=== PATIENT | female | born 1935 | race Caucasian/White ===

== ENCOUNTER 2017-07-28 23:04 | Emergency (ER) | payer MEDICARE, BC ==
[2017-07-28] MEDS ORDERED: Sodium Chloride 0.9% 10 ML Syringe FLUSH PRN (23:15)
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
[2017-07-29] MEDS ORDERED: Sodium Chloride 0.9% 10 ML Syringe FLUSH PRN (00:08)
[2017-07-29] MEDS ORDERED: Sodium Chloride 0.9% 1,000 ML IV SCH (00:15)
[2017-07-29 00:23] LABS: CHLORIDE,CL 96 mmol/L (98-107); SODIUM,NA 132 mmol/L (136-145)
[2017-07-29 02:26] VITALS: BP 128/62
== END 2017-07-29 02:10 | disposition home or self-care (01) ==
LOC: LL.ED 23:04
DX: K52.9 Noninfective gastroenteritis and colitis, unspecified (principal); I25.10 Atherosclerotic heart disease of native coronary artery without angina pectoris; I10 Essential (primary) hypertension; M19.90 Unspecified osteoarthritis, unspecified site; E78.00 Pure hypercholesterolemia, unspecified; F02.80 Dementia in other diseases classified elsewhere, unspecified severity, without behavioral disturbance, psychotic disturbance, mood disturbance, and anxiety; G30.9 Alzheimer's disease, unspecified; J44.9 Chronic obstructive pulmonary disease, unspecified; M81.0 Age-related osteoporosis without current pathological fracture; F32.9 Major depressive disorder, single episode, unspecified; Z88.2 Allergy status to sulfonamides; Z88.0 Allergy status to penicillin; Z88.1 Allergy status to other antibiotic agents; Z88.6 Allergy status to analgesic agent; Z79.899 Other long term (current) drug therapy; Z87.440 Personal history of urinary (tract) infections; E87.1 Hypo-osmolality and hyponatremia; E83.42 Hypomagnesemia; Z86.79 Personal history of other diseases of the circulatory system; Z90.79 Acquired absence of other genital organ(s); Z90.710 Acquired absence of both cervix and uterus
CPT/HCPCS: 36415; 80053; 85025; 96360; 96361; 99284; J7030; J7050

== ENCOUNTER 2017-08-09 09:35 | Day surgery (SDC) | payer MEDICARE, BC ==
[~2017-08-09 09:35] MED LIST: Lactated Ringers 1,000 ML IV SCH; Sodium Chloride 0.9% 10 ML Syringe FLUSH PRN
[2017-08-09] MEDS ORDERED: Propofol 200 MG/20 ML SDV ONE ×2 (10:50→10:57)
[2017-08-09] MEDS ORDERED: Midazolam 1 MG/ML 2 ML SDV ONE ×2 (10:50→10:57)
--- NOTE | 2017-08-09 10:55 | PCM.PN ---
- General Info Date of Service: 08/09/17 - Review of Systems Systems Review Comment:: 82-year-old female referred for colonoscopy. It is been many years since her last colon exam. She does have a history of colitis. I have discussed the proposed colonoscopy with the patient. Risks such as but not limited to GI injury and bleeding or discussed. She appears to understand and agrees to proceed. Her recent history and physical is reviewed. And there is no significant change in her health status since that time. - Patient Data Vitals - Most Recent: Last Vital Signs Temp 98.2 F 08/09/17 10:31 Pulse 114 H 08/09/17 10:31 Resp 18 08/09/17 10:31 BP 143/65 H 08/09/17 10:31 Pulse Ox 99 08/09/17 10:31 Weight - Most Recent: 65.317 kg Med Orders - Current: Current Medications Lactated Ringer's (Ringers, Lactated) 1,000 mls @ 125 mls/hr IV ASDIRECTED TEN Last Admin: 08/09/17 10:49 Dose: 125 mls/hr Sodium Chloride (Saline Flush) 10 ml FLUSH ASDIRECTED PRN PRN Reason: Keep Vein Open Discontinued Medications Midazolam HCl (Versed 1 Mg/Ml) Confirm Administered Dose 2 mg .ROUTE .STK-MED ONE Stop: 08/09/17 10:51 Propofol (Diprivan 20 Ml) Confirm Administered Dose 400 mg .ROUTE .STK-MED ONE Stop: 08/09/17 10:51 - Problem List Review Problem List Initiated/Reviewed/Updated: Yes - Assessment Assessment:: Colon Cancer Screening History of Colitis - Plan Plan:: Colonoscopy
[2017-08-09] MEDS ORDERED: ePHEDrine 50 MG/ML SDV ONE (10:57)
--- NOTE | 2017-08-09 11:46 | PCM.OPNOTE ---
- General Post-Op/Procedure Note Date of Surgery/Procedure: 08/09/17 Operative Procedure(s): Colonoscopy Findings: Normal appearing colon mucosa but with lack of distensibility suggestive of chronic colitis Pre Op Diagnosis: Colon Cancer Screening. History of Colitis Post-Op Diagnosis: Normal colon Anesthesia Technique: MAC Primary Surgeon: Pato Sandy Pathology: none Output, Urine Amount: 0 EBL in mLs: 0 Complications: None Condition: Good Free Text/Narrative:: Intake & Output 08/08/17 08/09/17 08/09/17 22:59 06:59 14:59 Intake Total 700 Balance 700
--- NOTE | 2017-08-09 14:10 | OR ---
Date of Procedure: 08/09/2017 PREOPERATIVE DIAGNOSES: 1. Colon cancer screening. 2. History of colitis. POSTOPERATIVE DIAGNOSIS: Normal colon. OPERATION PERFORMED: Colonoscopy. INDICATIONS FOR SURGERY: This 82-year-old female with a history of colitis in the past. She is referred for colonoscopy. She has recently had some abdominal pain and it has been many years since her last colonoscopy. FINDINGS: No mucosal lesions were seen during colonoscopy. No polyps or visible signs of acute inflammation are seen. The patient's colon diffusely shows a relative lack of distensibility suggesting perhaps chronic colitis, but no acute colitis changes were seen today. No indication of extrinsic or intrinsic masses noted. PROCEDURE IN DETAIL: The patient was taken to the operating room. She was given intravenous sedation and with her in the left lateral decubitus position, digital rectal exam was performed showing no rectal masses. The Olympus colonoscope was inserted into the rectum. Retroflexed examination of the rectal canal was performed. The scope was then carefully advanced under direct visualization through the entire length of the colon until cecum is reached. Cecal acquisition is confirmed by noting the normal internal cecal anatomy including the ileocecal valve. The light was also noted to transilluminate the abdominal wall in the right lower quadrant. After examining the cecum, the scope was slowly withdrawn sequentially re-examining the colonic segments until the entire colon and rectum had been fully examined. The scope was removed and the patient was taken from the operating room in satisfactory condition. ESTIMATED BLOOD LOSS: Zero. COMPLICATIONS: None. PROGNOSIS: Good. SADIE Sandy MD /[id number]
[2017-08-09 14:13] VITALS: BP 115/51
== END 2017-08-09 12:50 | disposition home or self-care (01) ==
LOC: LL.SDS 09:35
PROVIDERS: ATTEND Surgery
DX: Z12.11 Encounter for screening for malignant neoplasm of colon (principal); I10 Essential (primary) hypertension; E78.5 Hyperlipidemia, unspecified; F41.9 Anxiety disorder, unspecified; F32.9 Major depressive disorder, single episode, unspecified; Z88.1 Allergy status to other antibiotic agents; Z88.0 Allergy status to penicillin; Z88.2 Allergy status to sulfonamides; Z88.8 Allergy status to other drugs, medicaments and biological substances; Z79.899 Other long term (current) drug therapy
CPT/HCPCS: 00810; G0121; J2250; J2704; J7120

== ENCOUNTER 2017-10-30 13:26 | Emergency (ER) | payer MEDICARE, BC ==
[2017-10-30 14:40] LABS: CHLORIDE,CL 97 mmol/L (98-107); SODIUM,NA 132 mmol/L (136-145)
[2017-10-30 15:08] VITALS: BP 148/63
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
== END 2017-10-30 15:38 | disposition home or self-care (01) ==
LOC: LL.ED 13:26
DX: I11.9 Hypertensive heart disease without heart failure (principal); J44.9 Chronic obstructive pulmonary disease, unspecified; M19.90 Unspecified osteoarthritis, unspecified site; K21.9 Gastro-esophageal reflux disease without esophagitis; F41.8 Other specified anxiety disorders; E83.42 Hypomagnesemia; E87.1 Hypo-osmolality and hyponatremia; I25.10 Atherosclerotic heart disease of native coronary artery without angina pectoris; Z79.899 Other long term (current) drug therapy; Z88.0 Allergy status to penicillin; Z88.1 Allergy status to other antibiotic agents; Z88.2 Allergy status to sulfonamides; Z88.8 Allergy status to other drugs, medicaments and biological substances
CPT/HCPCS: 36415; 80053; 81001; 83735; 83880; 84484; 85025; 87086; 99284

== ENCOUNTER 2017-11-26 10:17 | Observation (INO) | payer MEDICARE, BC ==
[2017-11-26] MEDS ORDERED: Meclizine 25 MG Tab PO ONE (10:53)
[2017-11-26] MEDS ORDERED: Sodium Chloride 0.9% 500 ML IV ONE (10:54)
[2017-11-26 11:00] LABS: CHLORIDE,CL 99 mmol/L (98-107); SODIUM,NA 136 mmol/L (136-145)
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
[2017-11-26] MEDS ORDERED: Meclizine 25 MG Tab PO PRN ×2 (13:00→18:00)
[2017-11-26] MEDS ORDERED: methylPREDNISolone Acetate 40 MG/ML SDV IM ONE (13:30)
[2017-11-26] MEDS ORDERED: methylPREDNISolone Sodium Succinate 125 MG/2 ML SDV IVPUSH ONE (13:45)
[2017-11-26] MEDS: Metoprolol Tartrate 25 MG Tab PO SCH (17:13)
[2017-11-26] MEDS: Magnesium Oxide 400 MG Tab PO SCH (17:14)
[2017-11-26] MEDS: Amitriptyline 10 MG Tab PO SCH (20:06)
[2017-11-26] MEDS: Acetaminophen 325 MG Tab PO PRN (20:06)
[2017-11-26] MEDS: Sodium Chloride 0.9% 10 ML Syringe FLUSH PRN (20:08)
[2017-11-27] MEDS: Acetaminophen 325 MG Tab PO PRN (02:54)
[2017-11-27] MEDS: Escitalopram 20 MG Tab PO SCH (07:45)
[2017-11-27] MEDS: Ferrous Sulfate 325 MG Tab PO SCH (07:45)
[2017-11-27] MEDS: Metoprolol Tartrate 25 MG Tab PO SCH ×2 (07:46→17:13)
[2017-11-27] MEDS: Lisinopril 10 MG Tab PO SCH (07:47)
[2017-11-27] MEDS: Multivitamin Tab PO SCH (07:47)
[2017-11-27] MEDS: Magnesium Oxide 400 MG Tab PO SCH ×3 (07:47→17:13)
--- NOTE | 2017-11-27 14:59 | PCM.PN ---
- General Info Date of Service: 11/27/17 Functional Status: Reports: Other (head still feels heavy) - Review of Systems General: Reports: Weakness HEENT: Reports: No Symptoms Pulmonary: Reports: No Symptoms Cardiovascular: Reports: No Symptoms Gastrointestinal: Reports: No Symptoms Genitourinary: Reports: No Symptoms Musculoskeletal: Reports: No Symptoms Skin: Reports: No Symptoms Neurological: Reports: Dizziness, Weakness Psychiatric: Reports: No Symptoms - Patient Data Vitals - Most Recent: Last Vital Signs Temp 97.8 F 11/27/17 08:00 Pulse 98 11/27/17 08:00 Resp 18 11/27/17 08:00 BP 150/86 H 11/27/17 08:00 Pulse Ox 98 11/27/17 08:00 Weight - Most Recent: 142 lb I&O - Last 24 Hours: Intake & Output 11/26/17 11/27/17 11/27/17 22:59 06:59 14:59 Intake Total 320 780 Output Total 500 Balance 320 280 Lab Results Last 24 Hours: Laboratory Results - last 24 hr 11/26/17 Range/Units 16:40 Specimen Type Urincc Urine Color Light yellow Urine Appearance Clear Urine pH 7.0 (5.0-9.0) Ur Specific [place] 1.015 (1.005-1.030) Urine Protein Negative (NEGATIVE) mg/dL Urine Glucose (UA) Negative (NEGATIVE) mg/dL Urine Ketones Negative (NEGATIVE) mg/dL Urine Occult Blood Negative (NEGATIVE) Urine Nitrite Negative (NEGATIVE) Urine Bilirubin Negative (NEGATIVE) Urine Urobilinogen 0.2 (0.2-1.0) E.U./dL Ur Leukocyte Esterase Negative (NEGATIVE) Urine RBC Not seen /HPF Urine WBC Not seen /HPF Ur Epithelial Cells Rare /LPF Urine Bacteria Not seen (NONE TO FEW) /HPF Med Orders - Current: Current Medications Acetaminophen (Tylenol) 650 mg PO Q4H PRN PRN Reason: Pain Last Admin: 11/27/17 02:54 Dose: 650 mg Amitriptyline HCl (Elavil) 10 mg PO BEDTIME TEN Last Admin: 11/26/17 20:06 Dose: 10 mg Escitalopram Oxalate (Lexapro) 10 mg PO DAILY TEN Last Admin: 11/27/17 07:45 Dose: 10 mg Ferrous Sulfate (Ferrous Sulfate) 325 mg PO DAILY TEN Last Admin: 11/27/17 07:45 Dose: 325 mg Influenza Virus Vaccine (Fluzone High-Dose ) 180 mcg IM .ONCE ONE Stop: 11/27/17 15:01 Last Admin: 11/27/17 14:45 Dose: 180 mcg Lisinopril (Prinivil) 10 mg PO DAILY [facility] Last Admin: 11/27/17 07:47 Dose: 10 mg Magnesium Oxide (Magnesium Oxide) 400 mg PO TID [facility] Last Admin: 11/27/17 11:42 Dose: 400 mg Meclizine HCl (Antivert) 25 mg PO Q6H PRN PRN Reason: Dizziness Metoprolol Tartrate (Lopressor) 12.5 mg PO BID [facility] Last Admin: 11/27/17 07:46 Dose: 12.5 mg Multivitamins/Minerals/Vitamin C (Tab-A-Taylor) 1 tab PO DAILY [facility] Last Admin: 11/27/17 07:47 Dose: 1 tab Sodium Chloride (Saline Flush) 10 ml FLUSH ASDIRECTED PRN PRN Reason: Keep Vein Open Last Admin: 11/26/17 20:08 Dose: 10 ml Discontinued Medications Sodium Chloride (Normal Saline) 500 mls @ 250 mls/hr IV ONETIME ONE Stop: 11/26/17 12:53 Last Admin: 11/26/17 11:26 Dose: 250 mls/hr Influenza Virus Vaccine (Pharmacy To Dose - Influenza Vaccine) 1 each IM ONETIME ONE Stop: 11/27/17 08:01 Meclizine HCl (Antivert) 25 mg PO ONETIME ONE Stop: 11/26/17 10:54 Last Admin: 11/26/17 11:26 Dose: 25 mg Meclizine HCl (Antivert) 25 mg PO Q4H PRN PRN Reason: Dizziness Methylprednisolone Acetate (Depo-Medrol) 40 mg IM ONETIME ONE Stop: 11/26/17 13:31 Last Admin: 11/26/17 13:38 Dose: Not Given Methylprednisolone Sodium Succinate (Solu-Medrol) 80 mg IVPUSH ONETIME ONE Stop: 11/26/17 13:46 Last Admin: 11/26/17 13:44 Dose: 80 mg - Exam General: Alert, Cooperative, No Acute Distress HEENT: Pupils Equal, Pupils Reactive, EOMI, Mucous Membr. Moist/[place] Neck: Trachea Midline, No JVD Lungs: Clear to Auscultation, Normal Respiratory Effort Cardiovascular: Regular Rate, Regular Rhythm GI/Abdominal Exam: Normal Bowel Sounds, Non-Tender, No Distention (Female) Exam: Deferred Back Exam: Normal Inspection Extremities: Normal Inspection, Non-Tender, No Pedal Edema Skin: Warm, Dry, Intact Neurological: Other (nystagmus) Psy/Mental Status: Alert, Normal Affect, Normal Mood - Problem List & Annotations (1) Meniere's disease of both ears SNOMED Code(s): 95621836 Code(s): H81.03 - MENIERE'S DISEASE, BILATERAL Status: Acute Priority: High Current Visit: Yes (2) Vertigo SNOMED Code(s): 146690950 Code(s): R42 - DIZZINESS AND GIDDINESS Status: Acute Priority: High Current Visit: Yes Annotation/Comment:: Vertigo sensation currently gone. Head rotation does not trigger worsening symptoms. Continues to complain of dizziness but denies "world is spinning sensation" at this time. (3) Dizziness SNOMED Code(s): 619695858 Code(s): R42 - DIZZINESS AND GIDDINESS Status: Chronic Priority: Medium Current Visit: Yes Annotation/Comment:: Hx of chronic dizziness. (4) Hypomagnesemia SNOMED Code(s): 504510398 Code(s): E83.42 - HYPOMAGNESEMIA Status: Chronic Priority: Medium Current Visit: Yes Onset Date: 11/13/14 Annotation/Comment:: Does take supplement at home. (5) HTN, Benign hypertension SNOMED Code(s): 20884083 Code(s): I10 - ESSENTIAL (PRIMARY) HYPERTENSION Status: Acute Priority: Medium Current Visit: No Annotation/Comment:: Blood pressure initially somewhat elevated on arrival possibly with anxious component with patient not taking her medications this morning. Continue to observe her symptoms closely for now. Blood pressures stable in the emergency room later during our evaluation with no further medical therapy required. Compliance with medical therapy strongly encouraged with patient apparently not occasionally compliant with her lisinopril per records from her pharmacy today. (6) Heart disease SNOMED Code(s): 55369231 Code(s): I51.9 - HEART DISEASE, UNSPECIFIED Status: Acute Priority: Medium Current Visit: No Annotation/Comment:: No chest pain or anginal-type symptoms with stable valvular disease by clinical exam as above. Only mild BNP elevation with no significant clinical CHF despite her hyponatremia, which is known. (7) Mixed anxiety depressive disorder SNOMED Code(s): 386452035 Code(s): F41.8 - OTHER SPECIFIED ANXIETY DISORDERS Status: Acute Priority : Medium Current Visit: No Annotation/Comment:: Stable by patient history. Continue to observe closely (8) Osteoarthritis SNOMED Code(s): 017531677 Code(s): M19.90 - UNSPECIFIED OSTEOARTHRITIS, UNSPECIFIED SITE Status: Acute Priority: Medium Current Visit: No Annotation/Comment:: Under good control by patient history with chronic narcotic use in the past however not recently. (9) COPD, Moderate chronic obstructive pulmonary disease SNOMED Code(s): 269084199 Code(s): J44.9 - CHRONIC OBSTRUCTIVE PULMONARY DISEASE, UNSPECIFIED Status : Chronic Priority: Medium Current Visit: No Annotation/Comment:: No current bronchitic-type symptoms no recent history of fever, etc. Patient is still not currently on inhalers or nebulizers. Consider PFTs, initiation of medical therapy, etc. by her regular provider depending on her clinical course (10) Peptic reflux disease SNOMED Code(s): 32999685 Code(s): K21.9 - GASTRO-ESOPHAGEAL REFLUX DISEASE WITHOUT ESOPHAGITIS Status: Chronic Priority: Medium Current Visit: No Annotation/Comment:: High-dose IV Pepcid given in the emergency room as GI prophylaxis. No direct evidence of acute exacerbation at this time with symptoms likely related to possible beginning viral GE. Note previous history of iron deficiency anemia with further GI workup as needed. - Problem List Review Problem List Initiated/Reviewed/Updated: Yes - My Orders Last 24 Hours: My Active Orders 11/27/17 15:00 FLU Vacc [id number](65YR UP)/PF [Fluzone High-Dose ] 180 mcg IM .ONCE ONE 11/27/17 20:00 methylPREDNISolone Sod Succ [Solu-MEDROL] 40 mg IVPUSH Q12HR 11/28/17 05:11 CBC WITH AUTO DIFF [HEME] Routine CMP [COMPREHENSIVE METABOLIC PN,CMP] [CHEM] Routine MAGNESIUM [CHEM] Routine - Plan Plan:: 11/27/17 Arabella Ortega MD Still not feeling the best. Heavy head. adjust some medications.
[2017-11-27] MEDS ORDERED: FLU Vacc TS 2017-18 (65yr UP)/PF 180 MCG/0.5 ML Syringe IM ONE (15:00)
[2017-11-27] MEDS: methylPREDNISolone Sodium Succinate 40 MG/1 ML SDV IVPUSH SCH (19:39)
[2017-11-27] MEDS: Sodium Chloride 0.9% 10 ML Syringe FLUSH PRN (19:40)
[2017-11-27] MEDS: Amitriptyline 10 MG Tab PO SCH (19:40)
[2017-11-28 07:18] LABS: CHLORIDE,CL 99 mmol/L (98-107); SODIUM,NA 133 mmol/L (136-145)
[2017-11-28] MEDS: Ferrous Sulfate 325 MG Tab PO SCH (07:44)
[2017-11-28] MEDS: Magnesium Oxide 400 MG Tab PO SCH ×2 (07:44→11:20)
[2017-11-28] MEDS: Multivitamin Tab PO SCH (07:45)
[2017-11-28] MEDS: Escitalopram 20 MG Tab PO SCH (07:45)
[2017-11-28] MEDS: methylPREDNISolone Sodium Succinate 40 MG/1 ML SDV IVPUSH SCH (07:46)
[2017-11-28] MEDS: Sodium Chloride 0.9% 10 ML Syringe FLUSH PRN (07:47)
[2017-11-28] MEDS: Metoprolol Tartrate 25 MG Tab PO SCH (07:49)
[2017-11-28] MEDS: Lisinopril 10 MG Tab PO SCH (07:49)
[2017-11-28 11:19] VITALS: BP 107/54
--- NOTE | 2017-11-28 15:01 | PCM.PN ---
- General Info Date of Service: 11/28/17 Functional Status: Reports: Pain Controlled - Review of Systems General: Reports: No Symptoms HEENT: Reports: No Symptoms Pulmonary: Reports: No Symptoms Cardiovascular: Reports: No Symptoms Gastrointestinal: Reports: No Symptoms Genitourinary: Reports: No Symptoms Musculoskeletal: Reports: No Symptoms Skin: Reports: No Symptoms Neurological: Reports: No Symptoms Psychiatric: Reports: No Symptoms - Patient Data Vitals - Most Recent: Last Vital Signs Temp 98.2 F 11/28/17 11:17 Pulse 74 11/28/17 11:17 Resp 17 11/28/17 11:17 BP 107/54 L 11/28/17 11:17 Pulse Ox 93 L 11/28/17 11:17 Weight - Most Recent: 143 lb 9.605 oz I&O - Last 24 Hours: Intake & Output 11/27/17 11/28/17 11/28/17 22:59 06:59 14:59 Intake Total 990 156 6943 Output Total 250 500 Balance 180 140 600 Lab Results Last 24 Hours: Laboratory Results - last 24 hr 11/28/17 11/28/17 Range/Units 06:40 06:40 WBC 13.1 H (4.0-10.2) K/uL RBC 3.53 L (3.77-5.09) M/uL Hgb 11.5 L D (11.7-15.5) g/dL Hct 34.4 (34.0-46.0) % MCV 97.5 (84.0-98.0) fL MCH 32.6 (28.2-33.3) pg MCHC 33.4 (31.7-36.0) g/dL RDW 11.7 (11.2-14.1) % Plt Count 438 H (150-350) K/uL Neut % (Auto) 81.7 H (45.0-80.0) % Lymph % (Auto) 14.9 (10.0-50.0) % [place] % (Auto) 3.2 (2.0-14.0) % Eos % (Auto) 0.0 (0.0-5.0) % Baso % (Auto) 0.2 (0.0-2.0) % Neut # (Auto) 10.72 H (1.40-7.00) K/uL Lymph # (Auto) 1.95 (0.50-3.50) K/uL [place] # (Auto) 0.42 (0.00-1.00) K/uL Eos # (Auto) 0.00 (0.00-0.50) K/uL Baso # (Auto) 0.02 (0.00-0.20) K/uL Sodium 133 L (136-145) mmol/L Potassium 4.5 (3.5-5.1) mmol/L Chloride 99 (98-107) mmol/L Carbon Dioxide 25.3 (21.0-32.0) mmol/L BUN 20 H (7-18) mg/dL Creatinine 0.61 (0.51-1.17) mg/dL Est Cr Clr Drug Dosing 59.07 mL/min Estimated GFR (MDRD) > 60 mL/min Glucose 120 H (74-106) mg/dL Calcium 9.6 (8.5-10.1) mg/dL Magnesium 1.6 L (1.8-2.4) mg/dL Total Bilirubin 0.4 (0.2-1.0) mg/dL AST 19 (15-37) U/L ALT 24 (12-78) U/L Alkaline Phosphatase 56 (46-116) IU/L Total Protein 7.3 (6.4-8.2) g/dL Albumin 3.5 (3.4-5.0) g/dL Med Orders - Current: Current Medications Acetaminophen (Tylenol) 650 mg PO Q4H PRN PRN Reason: Pain Last Admin: 11/27/17 02:54 Dose: 650 mg Amitriptyline HCl (Elavil) 10 mg PO BEDTIME [facility] Last Admin: 11/27/17 19:40 Dose: 10 mg Escitalopram Oxalate (Lexapro) 10 mg PO DAILY [facility] Last Admin: 11/28/17 07:45 Dose: 10 mg Ferrous Sulfate (Ferrous Sulfate) 325 mg PO DAILY [facility] Last Admin: 11/28/17 07:44 Dose: 325 mg Lisinopril (Prinivil) 10 mg PO DAILY [facility] Last Admin: 11/28/17 07:49 Dose: 10 mg Magnesium Oxide (Magnesium Oxide) 400 mg PO TID [facility] Last Admin: 11/28/17 11:20 Dose: 400 mg Meclizine HCl (Antivert) 25 mg PO Q6H PRN PRN Reason: Dizziness Methylprednisolone Sodium Succinate (Solu-Medrol) 40 mg IVPUSH Q12HR [facility] Last Admin: 11/28/17 07:46 Dose: 40 mg Metoprolol Tartrate (Lopressor) 12.5 mg PO BID [facility] Last Admin: 11/28/17 07:49 Dose: 12.5 mg Multivitamins/Minerals/Vitamin C (Tab-A-Taylor) 1 tab PO DAILY [facility] Last Admin: 11/28/17 07:45 Dose: 1 tab Sodium Chloride (Saline Flush) 10 ml FLUSH ASDIRECTED PRN PRN Reason: Keep Vein Open Last Admin: 11/28/17 07:47 Dose: 10 ml Discontinued Medications Sodium Chloride (Normal Saline) 500 mls @ 250 mls/hr IV ONETIME ONE Stop: 11/26/17 12:53 Last Admin: 11/26/17 11:26 Dose: 250 mls/hr Influenza Virus Vaccine (Pharmacy To Dose - Influenza Vaccine) 1 each IM ONETIME ONE Stop: 11/27/17 08:01 Influenza Virus Vaccine (Fluzone High-Dose ) 180 mcg IM .ONCE ONE Stop: 11/27/17 15:01 Last Admin: 11/27/17 14:45 Dose: 180 mcg Meclizine HCl (Antivert) 25 mg PO ONETIME ONE Stop: 11/26/17 10:54 Last Admin: 11/26/17 11:26 Dose: 25 mg Meclizine HCl (Antivert) 25 mg PO Q4H PRN PRN Reason: Dizziness Methylprednisolone Acetate (Depo-Medrol) 40 mg IM ONETIME ONE Stop: 11/26/17 13:31 Last Admin: 11/26/17 13:38 Dose: Not Given Methylprednisolone Sodium Succinate (Solu-Medrol) 80 mg IVPUSH ONETIME ONE Stop: 11/26/17 13:46 Last Admin: 11/26/17 13:44 Dose: 80 mg - Exam General: Alert, Cooperative, No Acute Distress HEENT: Mucous Membr. Moist/[place] Neck: Trachea Midline, No JVD Lungs: Clear to Auscultation, Normal Respiratory Effort Cardiovascular: Regular Rate, Regular Rhythm GI/Abdominal Exam: Normal Bowel Sounds, Non-Tender, No Distention (Female) Exam: Deferred Back Exam: Normal Inspection Extremities: Normal Inspection Skin: Warm, Dry, Intact Neurological: No New Focal Deficit Psy/Mental Status: Alert, Normal Affect, Normal Mood - Problem List & Annotations (1) Meniere's disease of both ears SNOMED Code(s): 14343857 Code(s): H81.03 - MENIERE'S DISEASE, BILATERAL Status: Acute Priority: High Current Visit: Yes (2) Vertigo SNOMED Code(s): 565747517 Code(s): R42 - DIZZINESS AND GIDDINESS Status: Acute Priority: High Current Visit: Yes Annotation/Comment:: Vertigo sensation currently gone. Head rotation does not trigger worsening symptoms. Continues to complain of dizziness but denies "world is spinning sensation" at this time. (3) Dizziness SNOMED Code(s): 626848830 Code(s): R42 - DIZZINESS AND GIDDINESS Status: Chronic Priority: Medium Current Visit: Yes Annotation/Comment:: Hx of chronic dizziness. (4) Hypomagnesemia SNOMED Code(s): 138731646 Code(s): E83.42 - HYPOMAGNESEMIA Status: Chronic Priority: Medium Current Visit: Yes Onset Date: 11/13/14 Annotation/Comment:: Does take supplement at home. (5) HTN, Benign hypertension SNOMED Code(s): 56285507 Code(s): I10 - ESSENTIAL (PRIMARY) HYPERTENSION Status: Acute Priority: Medium Current Visit: No Annotation/Comment:: Blood pressure initially somewhat elevated on arrival possibly with anxious component with patient not taking her medications this morning. Continue to observe her symptoms closely for now. Blood pressures stable in the emergency room later during our evaluation with no further medical therapy required. Compliance with medical therapy strongly encouraged with patient apparently not occasionally compliant with her lisinopril per records from her pharmacy today. (6) Heart disease SNOMED Code(s): 34777713 Code(s): I51.9 - HEART DISEASE, UNSPECIFIED Status: Acute Priority: Medium Current Visit: No Annotation/Comment:: No chest pain or anginal-type symptoms with stable valvular disease by clinical exam as above. Only mild BNP elevation with no significant clinical CHF despite her hyponatremia, which is known. (7) Mixed anxiety depressive disorder SNOMED Code(s): 247782687 Code(s): F41.8 - OTHER SPECIFIED ANXIETY DISORDERS Status: Acute Priority : Medium Current Visit: No Annotation/Comment:: Stable by patient history. Continue to observe closely (8) Osteoarthritis SNOMED Code(s): 598820342 Code(s): M19.90 - UNSPECIFIED OSTEOARTHRITIS, UNSPECIFIED SITE Status: Acute Priority: Medium Current Visit: No Annotation/Comment:: Under good control by patient history with chronic narcotic use in the past however not recently. (9) COPD, Moderate chronic obstructive pulmonary disease SNOMED Code(s): 679343103 Code(s): J44.9 - CHRONIC OBSTRUCTIVE PULMONARY DISEASE, UNSPECIFIED Status : Chronic Priority: Medium Current Visit: No Annotation/Comment:: No current bronchitic-type symptoms no recent history of fever, etc. Patient is still not currently on inhalers or nebulizers. Consider PFTs, initiation of medical therapy, etc. by her regular provider depending on her clinical course (10) Peptic reflux disease SNOMED Code(s): 12224890 Code(s): K21.9 - GASTRO-ESOPHAGEAL REFLUX DISEASE WITHOUT ESOPHAGITIS Status: Chronic Priority: Medium Current Visit: No Annotation/Comment:: High-dose IV Pepcid given in the emergency room as GI prophylaxis. No direct evidence of acute exacerbation at this time with symptoms likely related to possible beginning viral GE. Note previous history of iron deficiency anemia with further GI workup as needed. - Problem List Review Problem List Initiated/Reviewed/Updated: Yes - My Orders Last 24 Hours: My Active Orders 11/27/17 20:00 methylPREDNISolone Sod Succ [Solu-MEDROL] 40 mg IVPUSH Q12HR 11/28/17 14:57 Discontinue Telemetry Monitoring [Cardiac Monitoring Discontinue] [RC] Click to Edit Peripheral IV Discontinue [OM.PC] Routine - Assessment Assessment:: 11/28/17 Arabella Ortega MD Feels much better. Home today. - Plan Plan:: 11/27/17 Arabella Ortega MD Still not feeling the best. Heavy head. adjust some medications.
--- NOTE | 2017-11-28 15:06 | PCM.DCSUM1 ---
Discharge Summary - Discharge Data Discharge Date: 11/28/17 Discharge Disposition: Home, Self-Care 01 Condition: Good - Discharge Diagnosis/Problem(s) (1) Meniere's disease of both ears SNOMED Code(s): 02297164 ICD Code: H81.03 - MENIERE'S DISEASE, BILATERAL Status: Acute Priority: High Current Visit: Yes (2) Vertigo SNOMED Code(s): 863333979 ICD Code: R42 - DIZZINESS AND GIDDINESS Status: Acute Priority: High Current Visit: Yes Problem Details: Vertigo sensation currently gone. Head rotation does not trigger worsening symptoms. Continues to complain of dizziness but denies "world is spinning sensation" at this time. (3) Dizziness SNOMED Code(s): 841727227 ICD Code: R42 - DIZZINESS AND GIDDINESS Status: Chronic Priority: Medium Current Visit: Yes Problem Details: Hx of chronic dizziness. (4) Hypomagnesemia SNOMED Code(s): 146731007 ICD Code: E83.42 - HYPOMAGNESEMIA Status: Chronic Priority: Medium Current Visit: Yes Onset Date: 11/13/14 Problem Details: Does take supplement at home. (5) HTN, Benign hypertension SNOMED Code(s): 35352916 ICD Code: I10 - ESSENTIAL (PRIMARY) HYPERTENSION Status: Acute Priority: Medium Current Visit: No Problem Details: Blood pressure initially somewhat elevated on arrival possibly with anxious component with patient not taking her medications this morning. Continue to observe her symptoms closely for now. Blood pressures stable in the emergency room later during our evaluation with no further medical therapy required. Compliance with medical therapy strongly encouraged with patient apparently not occasionally compliant with her lisinopril per records from her pharmacy today. (6) Heart disease SNOMED Code(s): 30755004 ICD Code: I51.9 - HEART DISEASE, UNSPECIFIED Status: Acute Priority: Medium Current Visit: No Problem Details: No chest pain or anginal-type symptoms with stable valvular disease by clinical exam as above. Only mild BNP elevation with no significant clinical CHF despite her hyponatremia, which is known. (7) Mixed anxiety depressive disorder SNOMED Code(s): 078723352 ICD Code: F41.8 - OTHER SPECIFIED ANXIETY DISORDERS Status: Acute Priority: Medium Current Visit: No Problem Details: Stable by patient history. Continue to observe closely (8) Osteoarthritis SNOMED Code(s): 900436415 ICD Code: M19.90 - UNSPECIFIED OSTEOARTHRITIS, UNSPECIFIED SITE Status: Acute Priority: Medium Current Visit: No Problem Details: Under good control by patient history with chronic narcotic use in the past however not recently. (9) COPD, Moderate chronic obstructive pulmonary disease SNOMED Code(s): 480769386 ICD Code: J44.9 - CHRONIC OBSTRUCTIVE PULMONARY DISEASE, UNSPECIFIED Status : Chronic Priority: Medium Current Visit: No Problem Details: No current bronchitic-type symptoms no recent history of fever, etc. Patient is still not currently on inhalers or nebulizers. Consider PFTs, initiation of medical therapy, etc. by her regular provider depending on her clinical course (10) Peptic reflux disease SNOMED Code(s): 67494755 ICD Code: K21.9 - GASTRO-ESOPHAGEAL REFLUX DISEASE WITHOUT ESOPHAGITIS Status: Chronic Priority: Medium Current Visit: No Problem Details: High- dose IV Pepcid given in the emergency room as GI prophylaxis. No direct evidence of acute exacerbation at this time with symptoms likely related to possible beginning viral GE. Note previous history of iron deficiency anemia with further GI workup as needed. - Patient Summary/Data Consults: Consultations 11/26/17 12:55 Consult to Occupational Therapy [OT Evaluation and Treatment] [CONS] Routine PT Evaluation and Treatment [CONS] Routine - Patient Instructions Diet: Regular Diet as Tolerated Activity: As Tolerated - Discharge Plan Home Medications: Home Meds Amitriptyline [Elavil] 10 mg PO BEDTIME 07/29/17 [History] Lisinopril 10 mg PO DAILY 07/29/17 [History] Ferrous Sulfate 325 mg PO DAILY 08/08/17 [History] Acetaminophen [Tylenol] 650 mg PO Q4H PRN 10/30/17 [History] Metoprolol Tartrate 12.5 mg PO BID 10/30/17 [History] Multivitamin [Multivitamins] 1 each PO DAILY 10/30/17 [History] Escitalopram [Lexapro] 10 mg PO DAILY 11/26/17 [History] Magnesium Oxide 400 mg PO TID 11/26/17 [History] Meclizine [Antivert] 25 mg PO Q4H PRN 11/26/17 [History] Forms: ED Department Discharge Referrals: Savanah Robertson PA [Primary Care Provider] - - Discharge Summary/Plan Comment DC Time >30 min.: No Discharge Summary/Plan Comment: 11/28/17 Arabella Ortega MD Feels much better. Home today. Follow up in [facility] next week. She will call and make appointment. - Patient Data Vitals - Most Recent: Last Vital Signs Temp 98.2 F 11/28/17 11:17 Pulse 74 11/28/17 11:17 Resp 17 11/28/17 11:17 BP 107/54 L 11/28/17 11:17 Pulse Ox 93 L 11/28/17 11:17 Weight - Most Recent: 143 lb 9.605 oz I&O - Last 24 hours: Intake & Output 11/28/17 11/28/17 11/28/17 06:59 14:59 22:59 Intake Total 390 1100 Output Total 250 500 Balance 140 600 Lab Results - Last 24 hrs: Laboratory Results - last 24 hr 11/28/17 11/28/17 Range/Units 06:40 06:40 WBC 13.1 H (4.0-10.2) K/uL RBC 3.53 L (3.77-5.09) M/uL Hgb 11.5 L D (11.7-15.5) g/dL Hct 34.4 (34.0-46.0) % MCV 97.5 (84.0-98.0) fL MCH 32.6 (28.2-33.3) pg MCHC 33.4 (31.7-36.0) g/dL RDW 11.7 (11.2-14.1) % Plt Count 438 H (150-350) K/uL Neut % (Auto) 81.7 H (45.0-80.0) % Lymph % (Auto) 14.9 (10.0-50.0) % [place] % (Auto) 3.2 (2.0-14.0) % Eos % (Auto) 0.0 (0.0-5.0) % Baso % (Auto) 0.2 (0.0-2.0) % Neut # (Auto) 10.72 H (1.40-7.00) K/uL Lymph # (Auto) 1.95 (0.50-3.50) K/uL [place] # (Auto) 0.42 (0.00-1.00) K/uL Eos # (Auto) 0.00 (0.00-0.50) K/uL Baso # (Auto) 0.02 (0.00-0.20) K/uL Sodium 133 L (136-145) mmol/L Potassium 4.5 (3.5-5.1) mmol/L Chloride 99 (98-107) mmol/L Carbon Dioxide 25.3 (21.0-32.0) mmol/L BUN 20 H (7-18) mg/dL Creatinine 0.61 (0.51-1.17) mg/dL Est Cr Clr Drug Dosing 59.07 mL/min Estimated GFR (MDRD) > 60 mL/min Glucose 120 H (74-106) mg/dL Calcium 9.6 (8.5-10.1) mg/dL Magnesium 1.6 L (1.8-2.4) mg/dL Total Bilirubin 0.4 (0.2-1.0) mg/dL AST 19 (15-37) U/L ALT 24 (12-78) U/L Alkaline Phosphatase 56 (46-116) IU/L Total Protein 7.3 (6.4-8.2) g/dL Albumin 3.5 (3.4-5.0) g/dL Med Orders - Current: Current Medications Acetaminophen (Tylenol) 650 mg PO Q4H PRN PRN Reason: Pain Last Admin: 11/27/17 02:54 Dose: 650 mg Amitriptyline HCl (Elavil) 10 mg PO BEDTIME [facility] Last Admin: 11/27/17 19:40 Dose: 10 mg Escitalopram Oxalate (Lexapro) 10 mg PO DAILY [facility] Last Admin: 11/28/17 07:45 Dose: 10 mg Ferrous Sulfate (Ferrous Sulfate) 325 mg PO DAILY [facility] Last Admin: 11/28/17 07:44 Dose: 325 mg Lisinopril (Prinivil) 10 mg PO DAILY [facility] Last Admin: 11/28/17 07:49 Dose: 10 mg Magnesium Oxide (Magnesium Oxide) 400 mg PO TID [facility] Last Admin: 11/28/17 11:20 Dose: 400 mg Meclizine HCl (Antivert) 25 mg PO Q6H PRN PRN Reason: Dizziness Methylprednisolone Sodium Succinate (Solu-Medrol) 40 mg IVPUSH Q12HR [facility] Last Admin: 11/28/17 07:46 Dose: 40 mg Metoprolol Tartrate (Lopressor) 12.5 mg PO BID [facility] Last Admin: 11/28/17 07:49 Dose: 12.5 mg Multivitamins/Minerals/Vitamin C (Tab-A-Taylro) 1 tab PO DAILY [facility] Last Admin: 11/28/17 07:45 Dose: 1 tab Sodium Chloride (Saline Flush) 10 ml FLUSH ASDIRECTED PRN PRN Reason: Keep Vein Open Last Admin: 11/28/17 07:47 Dose: 10 ml Discontinued Medications Sodium Chloride (Normal Saline) 500 mls @ 250 mls/hr IV ONETIME ONE Stop: 11/26/17 12:53 Last Admin: 11/26/17 11:26 Dose: 250 mls/hr Influenza Virus Vaccine (Pharmacy To Dose - Influenza Vaccine) 1 each IM ONETIME ONE Stop: 11/27/17 08:01 Influenza Virus Vaccine (Fluzone High-Dose ) 180 mcg IM .ONCE ONE Stop: 11/27/17 15:01 Last Admin: 11/27/17 14:45 Dose: 180 mcg Meclizine HCl (Antivert) 25 mg PO ONETIME ONE Stop: 11/26/17 10:54 Last Admin: 11/26/17 11:26 Dose: 25 mg Meclizine HCl (Antivert) 25 mg PO Q4H PRN PRN Reason: Dizziness Methylprednisolone Acetate (Depo-Medrol) 40 mg IM ONETIME ONE Stop: 11/26/17 13:31 Last Admin: 11/26/17 13:38 Dose: Not Given Methylprednisolone Sodium Succinate (Solu-Medrol) 80 mg IVPUSH ONETIME ONE Stop: 11/26/17 13:46 Last Admin: 11/26/17 13:44 Dose: 80 mg *Q Meaningful Use (DIS) - VTE *Q VTE Criteria *Q: - Stroke *Q Stroke Criteria *Q: - AMI *Q AMI Criteria *Q:
== END 2017-11-28 16:05 | disposition home or self-care (01) ==
LOC: LL.ED 10:17 → LL.MS 11:36
PROVIDERS: ADMIT Emergency Medicine; ATTEND Family Medicine
DX: H81.03 Meniere's disease, bilateral (principal); R42 Dizziness and giddiness; E83.42 Hypomagnesemia; I10 Essential (primary) hypertension; I25.10 Atherosclerotic heart disease of native coronary artery without angina pectoris; I51.9 Heart disease, unspecified; F41.8 Other specified anxiety disorders; M19.90 Unspecified osteoarthritis, unspecified site; J44.9 Chronic obstructive pulmonary disease, unspecified; G30.9 Alzheimer's disease, unspecified; F02.80 Dementia in other diseases classified elsewhere, unspecified severity, without behavioral disturbance, psychotic disturbance, mood disturbance, and anxiety; K21.9 Gastro-esophageal reflux disease without esophagitis; Z79.899 Other long term (current) drug therapy; Z88.0 Allergy status to penicillin; Z88.1 Allergy status to other antibiotic agents; Z88.2 Allergy status to sulfonamides; Z88.8 Allergy status to other drugs, medicaments and biological substances
CPT/HCPCS: 36415; 70450; 80053; 81001; 83735; 85025; 90662; 93005; 93010; 96360; 96361; 96374; 96376; 97110-GP; 97161-GP; 99220; 99285; A9270-GY; G0008; G0378; J2920; J2930; J7040; J7050

== ENCOUNTER 2017-11-30 08:20 | Emergency (ER) | payer MEDICARE, BC ==
[2017-11-30 08:40] VITALS: BP 152/59
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
== END 2017-11-30 09:50 | disposition home or self-care (01) ==
LOC: LL.ED 08:20
DX: H81.03 Meniere's disease, bilateral (principal); E78.00 Pure hypercholesterolemia, unspecified; I10 Essential (primary) hypertension; Z88.1 Allergy status to other antibiotic agents; Z88.0 Allergy status to penicillin; Z88.2 Allergy status to sulfonamides; Z79.899 Other long term (current) drug therapy
CPT/HCPCS: 81001; 99283; 99284

== ENCOUNTER 2018-01-08 19:48 | Emergency (ER) | payer MEDICARE, BC ==
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
[2018-01-08 20:24] VITALS: BP 171/65
== END 2018-01-08 20:55 | disposition home or self-care (01) ==
LOC: LL.ED 19:48
DX: I11.9 Hypertensive heart disease without heart failure (principal); H81.03 Meniere's disease, bilateral; I25.10 Atherosclerotic heart disease of native coronary artery without angina pectoris; E78.00 Pure hypercholesterolemia, unspecified; J44.9 Chronic obstructive pulmonary disease, unspecified; K21.9 Gastro-esophageal reflux disease without esophagitis; M19.90 Unspecified osteoarthritis, unspecified site; Z88.1 Allergy status to other antibiotic agents; Z88.0 Allergy status to penicillin; Z88.2 Allergy status to sulfonamides; Z79.899 Other long term (current) drug therapy
CPT/HCPCS: 99283